=== PATIENT | male | born 1950 | race Caucasian/White ===

== ENCOUNTER 2022-08-24 17:19 | Emergency (ER) | payer MEDICARE ==
[~2022-08-24] VITALS: Ht 165.1 cm; Wt 65.8 kg
[2022-08-24 17:23] VITALS: BP_SYST 165
--- NOTE | 2022-08-24 17:23 | NUR ---
Patient to ER bed 04 to gown for evaluation. Side rails up. Report given to Marli LEON.
--- NOTE | 2022-08-24 17:35 | NUR ---
CONTACT (FAMILY FRIEND) NATALIA BETO [phone]
--- NOTE | 2022-08-24 17:45 | NUR ---
RECEIVED PT FROM CAROLYN JEFFERSON. PT PEDRO MUNOZ WAS FOUND DOWN NEAR A BUILDING CONFUSED. PT IS AAOX2-3 AND TALKING TO HIMSELF. RESP E/U. ON RA. DENIES N/V/C/D. SKIN WARM, INTACT. DISTAL PULSES NORMAL. DENIES PAIN. VSS. SIDERAILS UP X2.
--- NOTE | 2022-08-24 18:11 | NUR ---
DR. KHAN AT BEDSIDE SPEAKING TO PT'S POA AND DISCUSSING POC.
--- NOTE | 2022-08-24 18:16 | NUR ---
EKG AND CXR OBTAINED.
[2022-08-24 18:23] LABS: BASOPHILS % (AUTO) 0.3 % (0.0-2.0); EOSINOPHILS # (AUTO) 0.1 K/uL (0.0-0.4); EOSINOPHILS % (AUTO) 1.5 % (0.0-4.0); HEMATOCRIT 32.9 % (36-54); HEMOGLOBIN 11.5 g/dL (14.0-18.0); LYMPHOCYTES # (AUTO) 1.2 K/uL (1.0-5.5); LYMPHOCYTES % (AUTO) 18.1 % (20.5-51.5); MEAN CORPUSCULAR HEMOGLOBIN 32 pg (27-31); MEAN CORPUSCULAR HGB CONC 35 % (32-36); MEAN CORPUSCULAR VOLUME 90 fL (79.0-98.0); MONOCYTES # (AUTO) 1.2 K/uL (0.0-1.0); MONOCYTES % (AUTO) 18.2 % (1.7-9.3); NEUTROPHILS # (AUTO) 4.1 K/uL (1.8-7.7); NEUTROPHILS % (AUTO) 61.9 % (40.0-70.0); PLATELET COUNT (AUTO) 154 K/uL (130-430); RED BLOOD CELL COUNT(AUTO) 3.66 MIL/uL (4.2-6.2); WHITE BLOOD COUNT (AUTO) 6.7 K/uL (4.8-10.8)
[2022-08-24 18:34] LABS: ANION GAP 3 (5-15); CHLORIDE 104 mmol/L (98-107); CREATININE 0.61 mg/dL (0.55-1.30); GLUCOSE 96 mg/dL (70-99); UREA NITROGEN, BLOOD 24 mg/dL (8-21)
[2022-08-24 18:55] LABS: ACETAMINOPHEN 2 ug/mL (1-30); ALANINE AMINOTRANSFERASE 46 U/L (12-78); ALBUMIN 2.9 g/dL (3.4-4.8); ASPARTATE AMINOTRANSFERASE 24 U/L (10-37); TOTAL BILIRUBIN 0.3 mg/dL (0.0-1.0)
[2022-08-24 19:02] LABS: BILIRUBIN,URINE NEGATIVE (NEGATIVE); BLOOD, URINE NEGATIVE (NEGATIVE); CLARITY/URINE CLEAR (CLEAR); COLOR,URINE YELLOW (YELLOW); GLUCOSE,URINE NEGATIVE (NEGATIVE); KETONES,URINE TRACE (NEGATIVE); LEUKOCYTE ESTERASE ,URINE NEGATIVE (NEGATIVE); NITRITE, URINE NEGATIVE (NEGATIVE); PROTEIN URINE NEGATIVE (NEGATIVE); UROBILINOGEN,URINE 0.2 (0.2-1.0)
[2022-08-24 19:12] LABS: ALCOHOL, BLOOD < 3 mg/dL (<10)
[2022-08-24 19:13] LABS: BARBITURATE, URINE NEGATIVE (NEG <=200); BENZODIAZEPINE, URINE NEGATIVE (NEG <=150); CANNABINOID, URINE POSITIVE (NEG <=50); COCAINE, URINE NEGATIVE (NEG <=150); METHAMPHETAMINES SCREEN,URINE NEGATIVE (NEG <=500); PHENCYCLIDINE SCREEN,URINE NEGATIVE (NEG <=25); UR TRICYCLIC ANTIDEPRESSANTS NEGATIVE (NEG <=300); URINE AMPHETAMINE NEGATIVE (NEG <=500); URINE METHADONE NEGATIVE (NEG <=200); URINE OXYCODONE SCREEN NEGATIVE (NEG <=100); URINE PROPOXYPHENE SCREEN NEGATIVE (NEG <=300)
[2022-08-24 19:14] LABS: OPIATE, URINE POSITIVE (NEG <=100)
[2022-08-24] MEDS ORDERED: NACL 0.9% 1,000 ML IV ONE (19:15)
--- NOTE | 2022-08-24 19:28 | NUR ---
ENDORSED ALL CARE TO CAROLYN MCNEILL. ALL QUESTIONS AND CONCERNS ADDRESSED.
--- NOTE | 2022-08-24 19:28 | NUR ---
Report received from CAROLYN Calles
[2022-08-24 20:55] VITALS: BP_SYST 165
--- NOTE | 2022-08-24 20:57 | NUR ---
Patient given written and verbal discharge instructions and verbalizes understanding. ER MD discussed with patient the results and treatment provided. Patient in stable condition. ID arm band removed. No Rx given. Patient educated on pain management and to follow up with PMD. Pain Scale 0/10 Opportunity for questions provided and answered. Medication side effect fact sheet provided.
== END 2022-08-24 20:57 | disposition home or self-care (01) ==
LOC: SED 17:19
DX: R41.0 Disorientation, unspecified (principal); E86.0 Dehydration; F12.90 Cannabis use, unspecified, uncomplicated; Z86.59 Personal history of other mental and behavioral disorders; Z79.899 Other long term (current) drug therapy
CPT/HCPCS: 99285; 70450; 71045; 80307; 80053; 85025; 84484; 36415; 93005; 76376; 81003; G0482; G0480